=== PATIENT | male | born 1925 | race Caucasian/White ===

== ENCOUNTER 2017-01-08 10:10 | Inpatient (IN) | payer OTHER ==
[~2017-01-08] VITALS: Ht 175.3 cm; Wt 78.9 kg
[~2017-01-08 10:10] MED LIST: ANTIVERT25 MG; ASPIR-TRIN325 MG; AZILECT1 MG PO; KLOR-CON 1010 ME1 PO; LASIX20 MG; LIDOCAINE VISC100 M1; NEURONTIN300 MG; SINEMET 25/1001 TAB PO; SYNTHROID0.05 MG PO; XANAX0.5 MG PO; [UNRECOGNIZED DRUG - CODE]; [UNRECOGNIZED DRUG - OTHER]
[2017-01-08] MEDS ORDERED: LIORESAL10 MG PO ×2 (10:23→14:07)
[2017-01-08] MEDS ORDERED: NAPROSYN500 MG PO ×2 (10:23→14:07)
[2017-01-08 10:24] VITALS: BP 111/74
--- NOTE | 2017-01-08 10:27 | NUR ---
Carola lance in [facility] - 01/08/17 at 1028 by OSIEL Patient ambulated to bed 04.
--- NOTE | 2017-01-08 10:28 | NUR ---
Patient taken to bed 04 via wheelchair per EMT.
--- NOTE | 2017-01-08 10:34 | NUR ---
Dr. He evaluating patient at bedside.
--- NOTE | 2017-01-08 10:35 | NUR ---
PATIENT PRESENTS TO ED WITH WEAKNESS AND DIZZINESS SINCE THIS MORNING, PT. FELL 2X TODAY BUT REPORTS NO INJURIES, PT. WAS SEEN YESTERDAY BY DOCTOR FOR BACK PAIN AND GIVEN NAPROXEN AND BACLOFEN WHICH HE TOOK THIS AM . DENIES N/V/D; SKIN IS PINK/WARM/DRY; AAOX4 WITH EVEN AND STEADY GAIT; LUNGS CLEAR BL; HR EVEN AND REGULAR; PT DENIES ANY FEVER, CP, SOB, OR COUGH AT THIS TIME; PATIENT STATES PAIN OF 4/10 AT THIS TIME; VSS; PATIENT POSITIONED FOR COMFORT; HOB ELEVATED; BEDRAILS UP X2; BED DOWN. ER MD MADE AWARE OF PT STATUS.
[2017-01-08] MEDS ORDERED: MECLIZINE 25 MG TAB PO ONE (10:40)
[2017-01-08] MEDS ORDERED: NACL 0.9% 1,000 ML IV ONE (10:40)
--- NOTE | 2017-01-08 11:00 | NUR ---
UNABLE TO PROVIDE URINE SAMPLE AT THIS TIME WITH URINAL PROVIDE AT BEDSIDE
--- NOTE | 2017-01-08 11:09 | NUR ---
AAO PT TAKEN TO CT VIA GURNEY BY CAMILA KELLOGG
--- NOTE | 2017-01-08 11:27 | NUR ---
CAMILA GONZALEZ AT BEDSIDE FOR US OF THE ABDOMEN TO AAO, COOPERATIVE PT
[2017-01-08] MEDS: NACL 0.9% 1,000 ML IV SCH (11:32)
[2017-01-08] MEDS ORDERED: MORPHINE SULFATE 2 MG/ML SYR IVP PRN (11:35)
[2017-01-08] MEDS ORDERED: ONDANSETRON 4 MG/2 ML VIAL IVP PRN (11:35)
[2017-01-08] MEDS ORDERED: HYDROcodone/APAP 5/325 MG 1 TAB TAB PO PRN (11:35)
[2017-01-08] MEDS ORDERED: ACETAMINOPHEN 325 MG TAB PO PRN (11:35)
[2017-01-08] MEDS ORDERED: DOCUSATE SODIUM 100 MG GELCAP PO PRN (11:35)
[2017-01-08] MEDS ORDERED: ASPIRIN 325 MG TAB PO ONE (12:35)
--- NOTE | 2017-01-08 13:12 | NUR ---
REPORT GIVEN TO PUMA ROSS
[2017-01-08] MEDS ORDERED: ALPRAZolam 0.5 MG TAB PO PRN (13:50)
[2017-01-08] MEDS ORDERED: NAPROXEN 500 MG TAB PO PRN (13:50)
--- NOTE | 2017-01-08 13:50 | NUR ---
Patient will be admitted to care of DR OROURKE. Admited to TELE. Will go to room 123A. Belongings list completed. Report to PUMA ROSS.
--- NOTE | 2017-01-08 13:50 | NUR ---
PT ON UNIT. NO S/S OF ACUTE DISTRESS. AAOX4. PT DENIES PAIN. IV SITE PATENT AND INTACT. LEFT TAYLOR SKIN ABRASION NOTED. SEIZURE AND FALL PRECAUTIONS INITIATED. PT ORIENTED TO ROOM. CALL LIGHT WITHIN REACH. SAFETY MEASURES ENSURED. WILL CONTINUE TO MONITOR.
[2017-01-08] MEDS ORDERED: SYNTHROID0.05 MG PO (14:07)
[2017-01-08] MEDS ORDERED: SINEMET 25/1001 TAB PO (14:07)
[2017-01-08] MEDS ORDERED: XANAX0.5 MG PO (14:07)
[2017-01-08] MEDS ORDERED: AZILECT1 MG PO (14:07)
[2017-01-08] MEDS ORDERED: ASPIR-TRIN325 MG PO (14:07)
[2017-01-08 14:14] VITALS: BP 119/77
[2017-01-08] MEDS ORDERED: PNEUMOCOCCAL VACCINE 23 MCG/0.5 ML VIAL IMVAC SCH (14:35)
[2017-01-08 16:00] VITALS: BP 121/73
[2017-01-08 16:52] VITALS: BP 97/54
[2017-01-08 16:53] VITALS: BP 89/54
--- NOTE | 2017-01-08 17:35 | NUR ---
PT RESTING IN BED. NO S/S OF ACUTE DISTRESS. PT DENIES PAIN. IV SITE PATENT AND INTACT. SCD'S ON BLE. CALL LIGHT WITHIN REACH. WILL CONTINUE TO MONITOR.
--- NOTE | 2017-01-08 19:09 | NUR ---
ENDORSED PLAN OF CARE TO NIGHT RN. PT REMAINS IN STABLE CONDITION.
--- NOTE | 2017-01-08 19:22 | NUR ---
RECEIVED REPORT FROM VANDANA BARTHOLOMEW FOR CONTINUITY OF CARE. PATIENT IS A&OX4, DISCUSSED PLAN OF CARE WITH PT AND FAMILY MEMBERS AT BEDSIDE, VERBALIZED UNDERSTANDING. SHIFT ASSESSMENT DONE, VS TAKEN- LOW B/P NOTED ELEVATED LEGS WILL REASSESS B/P, PATIENT IS STABLE AT THIS TIME AND ASYMPTOMATIC. PATIENT DENIES DIZZINESS. NO S/S OF RESPIRATORY DISTRESS NOTED ON ROOM AIR. PATIENT DENIES PAIN. IV TO RT AC 20 GAUGE PATENT AND INFUSING FLUIDS WELL. PT HAS LEFT TAYLOR ABRASION FROM FALL. SAFETY/ FALL /SEIZURE PRECAUTIONS ENFORCED. CALL LIGHT WITHIN REACH. FAMILY MEMBERS AT BEDSIDE. WILL CONTINUE TO MONITOR.
[2017-01-08 20:00] VITALS: BP 87/57
--- NOTE | 2017-01-08 20:15 | NUR ---
REASSESSED B/P 108/65. PATIENT IS AWAKE WATCHING TV. NO S/S OF DISTRESS NOTED. WILL CONTINUE TO MONITOR.
--- NOTE | 2017-01-08 21:37 | NUR ---
PROVIDED PATIENT WITH CHANGE OF LINENS AND GOWN. PLACED URINAL AT BEDSIDE. WILL CONTINUE TO MONITOR.
--- NOTE | 2017-01-08 23:52 | NUR ---
VS TAKEN, STABLE. EMPTIED URINAL 500 ML YELLOW CLEAR URINE. PATIENT IS SLEEPING. CALL LIGHT WITHIN REACH.
--- NOTE | 2017-01-08 23:57 | NUR ---
VS TAKEN, STABLE. PATIENT ATE SMALL SNACK AND WATER PRIOR TO NPO STATUS. PATIENT ALSO UP AT SINK PERFORMING PM CARE. CALL LIGHT WITHIN REACH. Addendum: 01/09/17 at 0038 by Serena Romero RN DISREGARD, WRONG PATIENT.
[2017-01-09] VITALS: BP 101/61
--- NOTE | 2017-01-09 01:56 | NUR ---
PATIENT IS SLEEPING. NO S/S OF DISTRESS OR DISCOMFORT NOTED. CALL LIGHT WITHIN REACH.
--- NOTE | 2017-01-09 03:58 | NUR ---
VS TAKEN, STABLE. IV FLUSHED AND PATENT. PT IS AWAKE USING INCENTIVE SPIROMETER, EDUCATION REINFORCED. WILL CONTINUE TO MONITOR.
[2017-01-09 04:00] VITALS: BP 117/64
--- NOTE | 2017-01-09 06:04 | NUR ---
PATIENT IS SLEEPING. NO S/S OF DISTRESS OR DISCOMFORT NOTED. CALL LIGHT WITHIN REACH.
[2017-01-09] MEDS: LEVOTHYROXINE 0.05 MG TAB PO SCH (06:47)
--- NOTE | 2017-01-09 07:12 | NUR ---
ENDORSED PATIENT TO DAYSHIFT RN FOR CONTINUITY OF CARE, PATIENT IS IN STABLE CONDITION.
--- NOTE | 2017-01-09 07:14 | NUR ---
RECEIVED REPORT FROM NIGHT RN. PT RESTING IN BED. AAOX4. NO S/S OF ACUTE DISTRESS. PT DENIES PAIN. IV SITE PATENT AND INTACT. DRESSING TO LEFT TAYLOR CHANGED AND INTACT. CALL LIGHT WITHIN REACH. SAFETY MEASURES ENSURED. WILL CONTINUE TO MONITOR.
[2017-01-09 08:00] VITALS: BP 123/77
[2017-01-09] MEDS: PANTOPRAZOLE 40 MG INJ VIAL IVP SCH (08:58)
[2017-01-09] MEDS: ASPIRIN 325 MG TABEC PO SCH (08:58)
[2017-01-09] MEDS: CARBIDOPA/LEVODOPA 25/100 MG 1 TAB PO SCH (08:58)
--- NOTE | 2017-01-09 08:59 | NUR ---
PATIENT HAS BEEN SCREENED AND CATEGORIZED MODERATE NUTRITION RISK. PATIENT WILL BE SEEN WITHIN 3-5 DAYS OF ADMISSION. 01/11/17-01/13/[address]
--- NOTE | 2017-01-09 09:51 | NUR ---
PT RESTING IN BED. PT TOLERATED AM MEDS WELL. NO S/S OF ACUTE DISTRESS. PT DENIES PAIN. CALL LIGHT WITHIN REACH. SAFETY MEASURES ENSURED. WILL CONTINUE TO MONITOR.
[2017-01-09] MEDS ORDERED: BACLOFEN 10 MG TAB PO PRN (09:53)
--- NOTE | 2017-01-09 10:55 | NUR ---
CALLED [employer] REGARDING PACEMAKER. AWAITING CALL BACK FROM [employer] W[employer] TANK TENDER.
--- NOTE | 2017-01-09 11:05 | NUR ---
SPOKE TO LAZARO FROM [employer]. HE WILL SEND A TECH OUT TODAY OR TOMORROW.
[2017-01-09] MEDS: NACL 0.9% 1,000 ML IV SCH (11:32)
[2017-01-09] MEDS ORDERED: NACL 0.9% 500 ML IV SCH (11:45)
--- NOTE | 2017-01-09 11:50 | NUR ---
PT RESTING IN BED. NO S/S OF ACUTE DISTRESS. PT DENIES PAIN. CALL LIGHT WITHIN REACH. SAFETY MEASURES ENSURED. FAMILY AT BEDSIDE. WILL CONTINUE TO MONITOR.
[2017-01-09 12:00] VITALS: BP 105/62
--- NOTE | 2017-01-09 14:02 | NUR ---
PT RESTING IN BED. NO S/S OF ACUTE DISTRESS. PT DENIES PAIN. CALL LIGHT WITHIN REACH. WILL CONTINUE TO MONITOR.
[2017-01-09 16:00] VITALS: BP 97/61
--- NOTE | 2017-01-09 16:35 | NUR ---
PT RESTING IN BED. NO S/S OF ACUTE DISTRESS. PT DENIES PAIN. CALL LIGHT WITHIN REACH. WILL CONTINUE TO MONITOR.
--- NOTE | 2017-01-09 19:13 | NUR ---
ENDORSED PLAN OF CARE TO NIGHT RN. PT REMAINS IN STABLE CONDITION.
--- NOTE | 2017-01-09 19:15 | NUR ---
RECEIVED REPORT FROM VANDANA BARTHOLOMEW FOR CONTINUITY OF CARE. PATIENT IS A&OX4, DISCUSSED PLAN OF CARE WITH PATIENT, VERBALIZED UNDERSTANDING. SHIFT ASSESSMENT DONE, VS TAKEN, IN STABLE CONDITION. NO S/S OF RESPIRATORY DISTRESS NOTED ON ROOM AIR. PATIENT DENIES PAIN AT THIS TIME. IV TO RT FOREARM 22 GAUGE PATENT AND INFUSING FLUIDS WELL. PT HAS LEFT TAYLOR SKIN TEAR FROM FALL, DRESSING INTACT. SAFETY/ FALL /SEIZURE PRECAUTIONS ENFORCED. REINFORCED TO PATIENT TO CALL FOR ASSISTANCE. CALL LIGHT WITHIN REACH. FAMILY MEMBERS AT BEDSIDE. WILL CONTINUE TO MONITOR.
[2017-01-09 20:00] VITALS: BP 90/52
--- NOTE | 2017-01-09 20:38 | NUR ---
ASSISTED PATIENT ON BEDPAN, EDUCATED PATIENT ON USE OF BEDPAN DUE TO LOW B/P AND FALL RISK, VERBALIZED UNDERSTANDING.
--- NOTE | 2017-01-09 22:46 | NUR ---
PATIENT C/O NOT BEING ABLE TO SLEEP. SPOKE TO DR. BECKER REGARDING ORDER FOR SLEEPING MEDICATION. WILL ADMINISTER PER MD ORDER.
[2017-01-09] MEDS ORDERED: ZOLPIDEM 5 MG TAB ONE (23:08)
[2017-01-09] MEDS: ZOLPIDEM 5 MG TAB PO SCH (23:10)
[2017-01-10] VITALS (7 sets, daily range): BP systolic 88–124; BP diastolic 58–67
--- NOTE | 2017-01-10 00:03 | NUR ---
VS TAKEN, STABLE. EMPTIED URINAL 450 ML CLEAR YELLOW URINE. CALL LIGHT WITHIN REACH.
--- NOTE | 2017-01-10 01:53 | NUR ---
PT IS SLEEPING, NO S/S OF RESPIRATORY DISTRESS OR DISCOMFORT NOTED. CALL LIGHT WITHIN REACH.
--- NOTE | 2017-01-10 04:06 | NUR ---
VS TAKEN, STABLE. EMPTIED 500 ML CLEAR YELLOW URINE FROM URINAL. REPLACED IV FLUIDS, IV INTACT. PT IS SLEEPING. NO S/S OF DISTRESS OR DISCOMFORT NOTED.
--- NOTE | 2017-01-10 05:20 | NUR ---
ASSISTED PATIENT TO BEDSIDE COMMODE, PATIENT HAD SMALL FORMED BM. RETURNED TO BED AND MADE COMFORTABLE. CALL LIGHT WITHIN REACH.
[2017-01-10] MEDS: LEVOTHYROXINE 0.05 MG TAB PO SCH (05:40)
--- NOTE | 2017-01-10 07:22 | NUR ---
ENDORSED PATIENT TO DAYSHIFT RN FOR CONTINUITY OF CARE, PATIENT IS IN STABLE CONDITION.
--- NOTE | 2017-01-10 07:23 | NUR ---
RECEIVED REPORT FROM THE MANAGER BOOK NURSE AT BEDSIDE FOR CONTINUITY OF CARE. PT IS AWAKE, ALERT, AND ORIENTED. CZECH SPEAKING. I INTRODUCED MYSELF AND UPDATE THE BOARD. 2 IV'S IN R ARM. R AC 20G IS SL. R FA 22G HAS THE NS RUNNING AT 50ML/HR. BOTH ARE INTACT AND DRY. BOTH ASYMPTOMATIC. NO COMPLAINTS OF PAIN. NO SIGNS OF DISTRESS. NOTED THE SMALL SKIN TEAR ON L TAYLOR W/ TEGADERM ON IT. SCD'S ON. WILL CONTINUE TO MONITOR PT.
--- NOTE | 2017-01-10 07:50 | NUR ---
[facility] STUDENT DID V/S. V/S WITHIN NORMAL RANGE. NO COMPLAINTS. NO SIGNS OF DISTRESS. ALL SAFETY MEASURES IN PLACE. WILL CONTINUE TO MONITOR PT.
[2017-01-10] MEDS: ASPIRIN 325 MG TABEC PO SCH (09:00)
[2017-01-10] MEDS: CARBIDOPA/LEVODOPA 25/100 MG 1 TAB PO SCH (09:19)
[2017-01-10] MEDS: PANTOPRAZOLE 40 MG INJ VIAL IVP SCH (09:20)
--- NOTE | 2017-01-10 09:20 | NUR ---
[facility] STUDENT WITH INSTRUCTOR ADMINISTERED MORNING MEDS. D/T LOW PLATELETS, HELD ASPIRIN. PT TOLERATED WELL. PT HAS NO COMPLAINTS AT THIS TIME. ALL NEEDS MET. ALL SAFETY PRECAUTIONS IN PLACE. WILL CONTINUE TO MONITOR PT.
[2017-01-10] MEDS ORDERED: ALBUTEROL SULFATE/IPRATROPIU 3 ML SOL IH PRN (10:15)
--- NOTE | 2017-01-10 10:54 | NUR ---
PT IS RESTING COMFORTABLY. NO PAIN AT TIME. EDUCATED PT TO DO THE INCENTIVE SPIROMETER AT LEAST 10 TIMES THROUGHOUT THE DAY. PT IS COMPLIANT. ASKED IF HE HAD A BM. NOT TODAY. BUT HE DID URINATE. WILL CONTINUE TO MONITOR PT.
--- NOTE | 2017-01-10 11:42 | NUR ---
P.T. HERE TO DO PHYSICAL THERAPY.
--- NOTE | 2017-01-10 12:45 | NUR ---
PT ENJOYING HIS LUNCH. ATE 100% TOLERATING WELL. VISITING WITH FAMILY AT BEDSIDE. D/C'D FLUID ORDERED. PT HAS NO COMPLAINTS AT THIS TIME. NO SIGNS OF DISTRESS. WILL CONTINUE TO MONITOR PT.
--- NOTE | 2017-01-10 14:10 | NUR ---
[facility] STUDENT AND INSTRUCTOR ADMINISTERED THE PNEUMOCOCCAL VACCINATION. PT TOLERATED WELL. WILL CONTINUE TO MONITOR PT.
--- NOTE | 2017-01-10 15:55 | NUR ---
PT C/O OF HAVING SOME DIZZINESS. [facility] STUDENTS CHECKED HIS BP. IT WAS 94/58. I CALLED DR. MCNEILL AND LET HER KNOW OF THE SITUATION. ADVISED TO GET AN ORTHOSTATIC BP. LYING DOWN: 94/58, SITTIN/61; STANDIN/63. HE FELT BETTER SITTING DOWN SO I SUGGESTED HE SIT IN A CHAIR UNTIL DINNER COMES. HE AGREED. HE SAID HE FELT BETTER NOW THAT HE IS SITTING. CALLED THE DR AND NOTIFIED HER OF THE BP'S. SHE AGREED TO HAVE HIM JUST SIT.
--- NOTE | 2017-01-10 17:16 | NUR ---
NEEDED ASSISTANCE TO USE THE BEDSIDE COMMODE. ASSISTED HIM FROM THE CHAIR TO THE COMMODE. GAVE HIM SOME PRIVACY. CALL LIGHT WITHIN REACH TO CALL WHEN HE IS FINISHED.
--- NOTE | 2017-01-10 18:53 | NUR ---
ENDORSED PT TO THE NIGHTSHIFT NURSE AT BEDSIDE FOR CONTINUITY OF CARE. PT IS VISITING WITH FAMILY AND FRIENDS. PT IS STABLE IN CONDITION. HE IS BACK IN BED. SCD'S BACK ON.
--- NOTE | 2017-01-10 19:15 | NUR ---
RECEIVED PT ON BED TALKING TO FAMILY MEMBERS AT BEDSIDE, AAO4, BRAZILIAN SPEAKING ONLY, VITAL SIGNS TAKEN, BP SLIGHTLY LOW, ASYMPTOMATIC, DENIES ANY PAIN, WILL RECHECKED LATER, NO COMPLAINTS OF DIZZINESS, SAFETY MEASURES IN PLACE, SIDE RAILS UP AND BED ALARM ON, CALL LIGHT WITHIN REACH.
[2017-01-10] MEDS: ZOLPIDEM 5 MG TAB PO SCH (20:37)
[2017-01-10] MEDS: CALCIUM CARB/VIT-D 500 MG/200 IU 1 TAB PO SCH (20:37)
[2017-01-10] MEDS: CARVEDILOL 3.125 MG TAB PO SCH (20:38)
--- NOTE | 2017-01-10 20:40 | NUR ---
DUE PO MEDICATIONS GIVEN INCLUDING SLEEPING PILL, ALL NEEDS ATTENDED.
[2017-01-10] MEDS ORDERED: ZOLPIDEM 5 MG TAB PO SCH (21:00)
[2017-01-10] MEDS ORDERED: CARVEDILOL 3.125 MG TAB PO SCH (21:00)
[2017-01-10] MEDS ORDERED: ATORVASTATIN 20 MG TAB PO SCH (21:00)
--- NOTE | 2017-01-10 22:00 | NUR ---
PT VOIDING FREELY PER URINAL, PT CAN REPOSITION SELF ON THE BED.
[2017-01-10] MEDS: DOCUSATE SODIUM 100 MG GELCAP PO PRN (22:30)
[2017-01-11] VITALS: BP 93/66
--- NOTE | 2017-01-11 | NUR ---
PT SLEEPING, EASILY AROUSABLE, VITAL SIGNS STABLE, NO SIGNS OF DISTRESS, CONTINUE TO MONITOR CLOSELY.
[2017-01-11 04:00] VITALS: BP 99/62
--- NOTE | 2017-01-11 05:10 | NUR ---
PT ASSISTED TO BEDSIDE COMMODE, NO BM JUST VOID, ASSISTED BACK TO BED, WILL GIVE DULCOLAX PRN, MONITORED CLOSELY.
[2017-01-11] MEDS: LEVOTHYROXINE 0.05 MG TAB PO SCH (06:00)
[2017-01-11] MEDS: DOCUSATE SODIUM 100 MG GELCAP PO PRN (06:02)
--- NOTE | 2017-01-11 07:25 | NUR ---
PT AWAKE, NO SIGNS OF DISTRESS, REPORT GIVEN TO PUMA GREGG FOR CONTINUITY OF CARE.
--- NOTE | 2017-01-11 07:26 | NUR ---
RECEIVED REPORT FROM THE WILDLIFE ENFORCEMENT MAJOR NURSE AT BEDSIDE. PT IS AWAKE AND ORIENTED. HE REMEMBERED ME FROM YESTERDAY. NOTED THE URINAL ABOUT 200ML OF YELLOW CLEAR URINE. HE HAS NO PAIN, NO OTHER COMPLAINTS. EXPLAINED TO HIM OF THE PLANS FOR TODAY. MAYBE GET HIM UP AND SITTING IN THE CHAIR. NO BM YET. WILDLIFE ENFORCEMENT MAJOR NURSE GAVE HIM 2 DOSES OF COLACE ON HIS SHIFT. WILL CONTINUE TO MONITOR HIM. ALL SAFETY MEASURES IN PLACE. WILL CONTINUE TO MONITOR PT.
[2017-01-11 08:00] VITALS: BP 116/70
[2017-01-11] MEDS ORDERED: LISINOPRIL 5 MG TAB PO SCH (09:00)
[2017-01-11] MEDS: CARVEDILOL 3.125 MG TAB PO SCH (09:00)
[2017-01-11] MEDS ORDERED: MULTIVITAMIN/MINERALS 1 TAB PO SCH (09:00)
[2017-01-11] MEDS: CALCIUM CARB/VIT-D 500 MG/200 IU 1 TAB PO SCH (09:01)
[2017-01-11] MEDS: CARBIDOPA/LEVODOPA 25/100 MG 1 TAB PO SCH (09:01)
[2017-01-11] MEDS: PANTOPRAZOLE 40 MG INJ VIAL IVP SCH (09:01)
[2017-01-11] MEDS: ASPIRIN 325 MG TABEC PO SCH (09:02)
--- NOTE | 2017-01-11 09:05 | NUR ---
ADMINISTERED MORNING MEDS. I HELD THE BP MEDS FOR DECREASED BP. PT TOLERATED WELL. PT IS SITTING IN CHAIR WATCHING TV. PT HAS NO COMPLAINTS. CALL LIGHT WITHIN REACH. WILL CONTINUE TO MONITOR PT.
--- NOTE | 2017-01-11 10:46 | NUR ---
PT IS BACK IN BED. WATCHING TV. NOTICED THAT THE SCD'S WERE OFF. I ASKED PT IF I CAN PUT THEM BACK ON. PT STATED YES. I WENT AHEAD AND ADMINISTERED THE SCD'S. PT IS COMFORTABLE, NO SIGNS OF DISTRESS. NO COMPLAINTS. WILL CONTINUE TO MONITOR PT.
[2017-01-11 12:00] VITALS: BP 97/60
--- NOTE | 2017-01-11 13:06 | NUR ---
PT IS RESTING IN BED, VISITING WITH FRIEND/FAMILY MEMBER. PLACED THE WOUND CARE SUPPLIES ON SIDE TABLE FOR THE [facility] STUDENT AND INSTRUCTOR. THEY WILL COME AFTER LUNCH BREAK AND COME AND DO THE WOUND CARE. Addendum: 01/11/17 at 1309 by Zaida Teresa RN I WILL OBSERVE.
--- NOTE | 2017-01-11 14:00 | NUR ---
SPOKE TO SON, CECE AND NOTIFIED HIM OF PT'S D/C ORDERS. CECE STATES THAT HE WILL BE HERE IN ABOUT AN HOUR. WILL START ON DC PAPERWORK AND LET STAIN WIPER KNOW TO GET HIM READY FOR D/C. PT IS HAPPY TO BE GOING HOME. HE IS TO F/U WITH DR. WHITEHEAD. APPT ALREADY MADE. HE IS ALSO TO F/U WITH PCP IN 3-5 DAYS.
[2017-01-11] MEDS ORDERED: FLORINEF0.1 MG PO (14:04)
[2017-01-11] MEDS ORDERED: CARVEDILOL3.125 MG PO (14:04)
--- NOTE | 2017-01-11 15:20 | NUR ---
GAVE AN EXTENSIVE DISCHARGE EDUCATION WITH THE SON AND THE PT. SON TRANSLATED. ANSWERED ALL QUESTIONS. SIGNED THE APPROPRIATE DOCUMENTS. REMOVED THE 2 IVS, CANNULAS INTACT. PT TOLERATED WELL. NO BLEEDING NOTED. REMOVED ARM BANDS. ROPEWALK ROPE MAKER IS HERE TO HELP HIM CHANGE INTO HIS CLOTHES. GATHERED ALL PERSONAL ITEMS. WILL GET A WHEEL CHAIR READY TO WHEEL OUT.
--- NOTE | 2017-01-11 15:34 | NUR ---
PT IS BEING WHEELED OUT BY THE SEAM STEAMER WITH SON AT HIS SIDE. ALL PERSONAL BELONGING TAKEN. PT IS STABLE.
[2017-01-12] MEDS ORDERED: FLUDROCORTISONE 0.1 MG TAB PO SCH (09:00)
[2017-04-25] MEDS ORDERED: NAMENDA5 MG PO (11:11)
== END 2017-01-11 15:35 | disposition home or self-care (01) | DRG 74 ==
LOC: MED 10:17 → MTU 13:30
PROVIDERS: ADMIT Family Medicine; ATTEND Family Medicine
PROC: 4B02XSZ Measurement of Cardiac Pacemaker, External Approach (ICD-10-PCS; principal; 2017-01-08)
DX: G90.9 Disorder of the autonomic nervous system, unspecified (principal); E87.1 Hypo-osmolality and hyponatremia; E83.51 Hypocalcemia; D69.6 Thrombocytopenia, unspecified; F41.9 Anxiety disorder, unspecified; E03.9 Hypothyroidism, unspecified; G20 Parkinson's disease; R31.9 Hematuria, unspecified; J44.9 Chronic obstructive pulmonary disease, unspecified; R26.81 Unsteadiness on feet; R55 Syncope and collapse; E86.0 Dehydration; W18.30XA Fall on same level, unspecified, initial encounter; M16.0 Bilateral primary osteoarthritis of hip; I48.91 Unspecified atrial fibrillation; Z95.0 Presence of cardiac pacemaker; Z79.82 Long term (current) use of aspirin; Z79.899 Other long term (current) drug therapy; Z98.49 Cataract extraction status, unspecified eye; Z86.73 Personal history of transient ischemic attack (TIA), and cerebral infarction without residual deficits; Y93.89 Activity, other specified; Y92.89 Other specified places as the place of occurrence of the external cause; Y99.8 Other external cause status